=== PATIENT | male | born 1985 | race American Indian/Alaskan Native ===

== ENCOUNTER 2017-12-24 08:57 | Emergency (ER) | payer OTHER ==
[2017-12-24 09:39] VITALS: BP 127/86
[2017-12-24] MEDS ORDERED: XYLOCAINE 1% MPF 5 mL INFILTRATI ONE (11:05)
[2017-12-24] MEDS ORDERED: BOOSTRIX IM ONE (11:05)
[2017-12-24] MEDS ORDERED: MOTRIN PO ONE (11:05)
--- NOTE | 2017-12-24 11:10 | Emergency Department Report ---
- General Chief complaint: Wound/Laceration Stated complaint: EAR PAIN Time Seen by Provider: 12/24/17 10:59 Source: patient Mode of arrival: Ambulatory Limitations: No Limitations - History of Present Illness Initial comments: This is a 32-year-old male nontoxic, well nourished in appearance, no acute signs of distress presents to the ED with c/o of abscess behind earlobe 1 week. Patient also has a secondary complaint of bilateral before meals 1 week. 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 Patient denies any pus, drainage, fever, chills, nausea, vomiting, chest pain shortness of breath. Patient denies any ear pain or drainage. Patient denies decreased hearing. Patient denies any mastoid tenderness. Patient denies any allergies or significant past medical history. MD complaint: abscess/boil -: days(s) (1) Tetanus Up to Date: no Severity: mild Severity scale (0 -10): 8 Quality: aching Consistency: constant Improves with: none Worsens with: none Context: none Associated symptoms: denies other symptoms Treatments Prior to Arrival: none - Related Data Previous Rx's Medication Instructions Recorded Last Taken Type Cyclobenzaprine [Flexeril 10mg] 10 mg PO TID PRN #30 tablet 08/19/14 Unknown Rx HYDROcodone/APAP 5-325 [[place] 1 each PO Q6HR PRN #20 tablet 08/19/14 Unknown Rx 5-325 mg TAB] Ibuprofen [Motrin] 600 mg PO Q8H PRN #40 tablet 08/19/14 Unknown Rx Clotrimazole 1% [Lotrimin 1%] 15 gm TP BID #1 tube 12/24/17 Unknown Rx Ibuprofen [Motrin] 600 mg PO Q8H PRN #30 tablet 12/24/17 Unknown Rx Sulfamethoxazole/Trimethoprim 1 each PO BID #14 tablet 12/24/17 Unknown Rx [Bactrim DS TAB] traMADol [Ultram] 50 mg PO Q6HR PRN #15 tablet 12/24/17 Unknown Rx Allergies Allergy/AdvReac Type Severity Reaction Status Date / Time No Known Allergies Allergy Verified 08/19/14 17:02 Abscess Boil HPI - HPI Chief Complaint: Wound/Laceration Stated Complaint: EAR PAIN Time Seen by Provider: 12/24/17 10:59 Home Medications: Previous Rx's Medication Instructions Recorded Last Taken Type Cyclobenzaprine [Flexeril 10mg] 10 mg PO TID PRN #30 tablet 08/19/14 Unknown Rx HYDROcodone/APAP 5-325 [[place] 1 each PO Q6HR PRN #20 tablet 08/19/14 Unknown Rx 5-325 mg TAB] Ibuprofen [Motrin] 600 mg PO Q8H PRN #40 tablet 08/19/14 Unknown Rx Clotrimazole 1% [Lotrimin 1%] 15 gm TP BID #1 tube 12/24/17 Unknown Rx Ibuprofen [Motrin] 600 mg PO Q8H PRN #30 tablet 12/24/17 Unknown Rx Sulfamethoxazole/Trimethoprim 1 each PO BID #14 tablet 12/24/17 Unknown Rx [Bactrim DS TAB] traMADol [Ultram] 50 mg PO Q6HR PRN #15 tablet 12/24/17 Unknown Rx Allergies/Adverse Reactions: Allergies Allergy/AdvReac Type Severity Reaction Status Date / Time No Known Allergies Allergy Verified 08/19/14 17:02 ED Review of Systems ROS: Stated complaint: EAR PAIN Other details as noted in HPI Constitutional: denies: chills, fever Eyes: denies: eye pain, eye discharge, vision change ENT: denies: ear pain, throat pain Respiratory: denies: cough, shortness of breath, wheezing Cardiovascular: denies: chest pain, palpitations Endocrine: no symptoms reported Gastrointestinal: denies: abdominal pain, nausea, diarrhea Genitourinary: denies: urgency, dysuria Musculoskeletal: denies: back pain, joint swelling, arthralgia Skin: denies: rash, lesions Neurological: denies: headache, weakness, paresthesias Psychiatric: denies: anxiety, depression Hematological/Lymphatic: denies: easy bleeding, easy bruising ED Past Medical Hx - Past Medical History Previous Medical History?: No Additional medical history: heart murmur - Surgical History Past Surgical History?: No - Social History Smoking Status: Never Smoker Substance Use Type: None - Medications Home Medications: Home Medications Medication Instructions Recorded Confirmed Last Taken Type Cyclobenzaprine [Flexeril 10mg] 10 mg PO TID PRN #30 tablet 08/19/14 Unknown Rx HYDROcodone/APAP 5-325 [[place] 1 each PO Q6HR PRN #20 tablet 08/19/14 Unknown Rx 5-325 mg TAB] Ibuprofen [Motrin] 600 mg PO Q8H PRN #40 tablet 08/19/14 Unknown Rx Clotrimazole 1% [Lotrimin 1%] 15 gm TP BID #1 tube 12/24/17 Unknown Rx Ibuprofen [Motrin] 600 mg PO Q8H PRN #30 tablet 12/24/17 Unknown Rx Sulfamethoxazole/Trimethoprim 1 each PO BID #14 tablet 12/24/17 Unknown Rx [Bactrim DS TAB] traMADol [Ultram] 50 mg PO Q6HR PRN #15 tablet 12/24/17 Unknown Rx ED Physical Exam - General Limitations: No Limitations General appearance: alert, in no apparent distress - Head Head exam: Present: atraumatic, normocephalic - Expanded Head Exam Expanded Head exam: Present: other (3 cm induration or fluctuance abscess. No pus or drainage. Tender to touch.) 1 - abscess here - Eye Eye exam: Present: normal appearance Pupils: Present: normal accommodation - ENT ENT exam: Present: normal exam, mucous membranes moist - Expanded ENT Exam Expanded Ear exam: Present: normal external inspection Mouth exam: Present: normal external inspection Teeth exam: Present: normal inspection Throat exam: Positive: normal inspection. Negative: tonsillar erythema, tonsillomegaly, tonsillar exudate, R peritonsillar mass, L peritonsillar mass - Neck Neck exam: Present: normal inspection, full ROM. Absent: tenderness, meningismus, lymphadenopathy - Respiratory Respiratory exam: Present: normal lung sounds bilaterally. Absent: respiratory distress - Cardiovascular Cardiovascular Exam: Present: regular rate, normal rhythm. Absent: systolic murmur, diastolic murmur, rubs, gallop - GI/Abdominal GI/Abdominal exam: Present: soft, normal bowel sounds - Rectal Rectal exam: Present: deferred - Extremities Exam Extremities exam: Present: normal inspection, full ROM, other (bilateral in between toes redness, crusting, and moisture) - Back Exam Back exam: Present: normal inspection, full ROM - Neurological Exam Neurological exam: Present: alert, oriented X3 - Psychiatric Psychiatric exam: Present: normal affect, normal mood - Skin Skin exam: Present: warm, dry, intact, normal color. Absent: rash ED Course Vital Signs 12/24/17 09:32 Temperature 98.5 F Pulse Rate 85 Respiratory 18 Rate Blood Pressure 127/86 O2 Sat by Pulse 99 Oximetry - Reevaluation(s) Reevaluation #1: 12/24/17 11:09 Patient is speaking in full sentences with no signs of distress noted. - I & D Right Ear Type of Procedure: Complex Site: behind right ear lobe Blade Size: 11 I & D Procedure: betadine prep, sterile drapes applied, sterile dressing applied , gauze wick placed Progress: Under sterile field, I used Betadine to cleanse the area. I then used 1% lidocaine plain with 25-gauge 5/8 needle to inject area for anesthetic purposes. Total volume injected 2 mL. I then used an 11 blade to make a 1 cm incision. About 2 mL's of purulent drainage has been noted. I then used a hemostat to break the abscess formation. I then used sterile 0.9% normal saline flush to flush the wound with total volume of 40 mL used. I then put a 1 /4 iodoform packing to the incision. A sterile 4 x 4 with tape has been applied as dressing. Bleeding is under control. Patient tolerated the procedure well with no signs of distress noted. ED Medical Decision Making - Medical Decision Making This is a 32-year-old male that presents with right behind earlobe abscess and athletes feet. Patient is stable and was examined by me. This is incision and drainage and has been performed and patient tolerated well. A sterile dressing has been applied. Patient was educated on proper wound care. Patient is discharged with Bactrim and Ultram and was instructed not to operate any machinery while taking Ultram due to drowsiness. Patient was instructed to return in 2 days for packing removal. Patient was instructed to refer to Follow -up with a primary care doctor in 3-5 days or if symptoms worsen and continue return to emergency room as soon as possible. At time of discharge, the patient does not seem toxic or ill in appearance. No acute signs of distress noted. Patient agrees to discharge treatment plan of care. No further questions noted by the patient. Critical care attestation.: If time is entered above; I have spent that time in minutes in the direct care of this critically ill patient, excluding procedure time. ED Disposition Clinical Impression: Abscess, Encounter for incision and drainage procedure Tinea pedis Qualifiers: Laterality: bilateral Qualified Code(s): B35.3 - Tinea pedis Disposition: TO HOME OR SELFCARE Is pt being admited?: No Does the pt Need Aspirin: No Condition: Stable Instructions: Tinea Pedis (ED), Abscess Incision and Drainage (ED), Abscess (ED ), Tramadol (By mouth), Sulfamethoxazole/Trimethoprim (By mouth) Additional Instructions: Follow-up with a primary care doctor in 3-5 days or if symptoms worsen and continue return to emergency room as soon as possible. Return in 2 days for packing removal and abscess assessment. Do not operate any machinery while taking ultrasound due to possible drowsiness. Prescriptions: Clotrimazole 1% [Lotrimin 1%] 15 gm TP BID #1 tube Ibuprofen [Motrin] 600 mg PO Q8H PRN #30 tablet PRN Reason: Pain Sulfamethoxazole/Trimethoprim [Bactrim DS TAB] 1 each PO BID #14 tablet traMADol [Ultram] 50 mg PO Q6HR PRN #15 tablet PRN Reason: Pain Referrals: PRIMARY CARE, [Primary Care Provider] - 3-5 Days AMARA ARIAS MD [Staff Physician] - 3-5 Days [facility] [place] [Outside] - 3-5 Days [facility] [Outside] - 3-5 Days Forms: Work/School Release Form(ED)
== END 2017-12-24 12:10 | disposition home or self-care (01) ==
LOC: ED 08:57
DX: B35.3 Tinea pedis (principal); H60.01 Abscess of right external ear
CPT/HCPCS: 90471; 90715; 99282

== ENCOUNTER 2018-01-01 09:41 | Emergency (ER) | payer OTHER ==
--- NOTE | 2018-01-01 10:55 | Emergency Department Report ---
- General Chief complaint: Skin Rash Stated complaint: ALLERGIC REACTION Time Seen by Provider: 01/01/18 10:29 Source: patient Mode of arrival: Ambulatory Limitations: No Limitations - History of Present Illness Initial comments: Patient is a 32-year-old Luxembour[place] male who is presenting with a rash. Patient states she was here approximately 45 days ago and was started on Lotrimin for some rash and blistering on the bottoms of his toes. Patient initially thought that he may have had a fungal infection secondary to having a wet socks and shoes. Patient states that now he has a lesion on his penis as well as on his abdomen that are itchy and painful. Patient denies any fevers chills nausea vomiting at this time. - Related Data Previous Rx's Medication Instructions Recorded Last Taken Type Cyclobenzaprine [Flexeril 10mg] 10 mg PO TID PRN #30 tablet 08/19/14 Unknown Rx HYDROcodone/APAP 5-325 [[place] 1 each PO Q6HR PRN #20 tablet 08/19/14 Unknown Rx 5-325 mg TAB] Ibuprofen [Motrin] 600 mg PO Q8H PRN #40 tablet 08/19/14 Unknown Rx Ibuprofen [Motrin] 600 mg PO Q8H PRN #30 tablet 12/24/17 Unknown Rx Sulfamethoxazole/Trimethoprim 1 each PO BID #14 tablet 12/24/17 Unknown Rx [Bactrim DS TAB] traMADol [Ultram] 50 mg PO Q6HR PRN #15 tablet 12/24/17 Unknown Rx Clindamycin [Clindamycin CAP] 150 mg PO Q8HR #20 capsule 01/01/18 Unknown Rx Clotrimazole 1% [Lotrimin 1%] 15 gm TP BID #1 tube 01/01/18 Unknown Rx Griseofulvin Ultramicrosize 500 mg PO BID 28 Days tablet 01/01/18 Unknown Rx [Nisha-Peg] traMADol [Ultram] 50 mg PO Q6HR PRN #14 tablet 01/01/18 Unknown Rx Allergies Allergy/AdvReac Type Severity Reaction Status Date / Time amoxicillin Allergy Vomiting Verified 01/01/18 09:47 Abscess Boil HPI - HPI Chief Complaint: Skin Rash Stated Complaint: ALLERGIC REACTION Time Seen by Provider: 01/01/18 10:29 Home Medications: Previous Rx's Medication Instructions Recorded Last Taken Type Cyclobenzaprine [Flexeril 10mg] 10 mg PO TID PRN #30 tablet 08/19/14 Unknown Rx HYDROcodone/APAP 5-325 [[place] 1 each PO Q6HR PRN #20 tablet 08/19/14 Unknown Rx 5-325 mg TAB] Ibuprofen [Motrin] 600 mg PO Q8H PRN #40 tablet 08/19/14 Unknown Rx Ibuprofen [Motrin] 600 mg PO Q8H PRN #30 tablet 12/24/17 Unknown Rx Sulfamethoxazole/Trimethoprim 1 each PO BID #14 tablet 12/24/17 Unknown Rx [Bactrim DS TAB] traMADol [Ultram] 50 mg PO Q6HR PRN #15 tablet 12/24/17 Unknown Rx Clindamycin [Clindamycin CAP] 150 mg PO Q8HR #20 capsule 01/01/18 Unknown Rx Clotrimazole 1% [Lotrimin 1%] 15 gm TP BID #1 tube 01/01/18 Unknown Rx Griseofulvin Ultramicrosize 500 mg PO BID 28 Days tablet 01/01/18 Unknown Rx [Nisha-Peg] traMADol [Ultram] 50 mg PO Q6HR PRN #14 tablet 01/01/18 Unknown Rx Allergies/Adverse Reactions: Allergies Allergy/AdvReac Type Severity Reaction Status Date / Time amoxicillin Allergy Vomiting Verified 01/01/18 09:47 ED Review of Systems ROS: Stated complaint: ALLERGIC REACTION Other details as noted in HPI Comment: All other systems reviewed and negative ED Past Medical Hx - Past Medical History Additional medical history: heart murmur - Social History Smoking Status: Current Every Day Smoker Substance Use Type: None - Medications Home Medications: Home Medications Medication Instructions Recorded Confirmed Last Taken Type Cyclobenzaprine [Flexeril 10mg] 10 mg PO TID PRN #30 tablet 08/19/14 Unknown Rx HYDROcodone/APAP 5-325 [[place] 1 each PO Q6HR PRN #20 tablet 08/19/14 Unknown Rx 5-325 mg TAB] Ibuprofen [Motrin] 600 mg PO Q8H PRN #40 tablet 08/19/14 Unknown Rx Ibuprofen [Motrin] 600 mg PO Q8H PRN #30 tablet 12/24/17 Unknown Rx Sulfamethoxazole/Trimethoprim 1 each PO BID #14 tablet 12/24/17 Unknown Rx [Bactrim DS TAB] traMADol [Ultram] 50 mg PO Q6HR PRN #15 tablet 12/24/17 Unknown Rx Clindamycin [Clindamycin CAP] 150 mg PO Q8HR #20 capsule 01/01/18 Unknown Rx Clotrimazole 1% [Lotrimin 1%] 15 gm TP BID #1 tube 01/01/18 Unknown Rx Griseofulvin Ultramicrosize 500 mg PO BID 28 Days tablet 01/01/18 Unknown Rx [Nisha-Peg] traMADol [Ultram] 50 mg PO Q6HR PRN #14 tablet 01/01/18 Unknown Rx ED Physical Exam - General Limitations: No Limitations General appearance: alert, in no apparent distress - Head Head exam: Present: atraumatic, normocephalic - Eye Eye exam: Present: normal appearance - ENT ENT exam: Present: mucous membranes moist - Neck Neck exam: Present: normal inspection - Respiratory Respiratory exam: Present: normal lung sounds bilaterally. Absent: respiratory distress - Cardiovascular Cardiovascular Exam: Present: regular rate, normal rhythm. Absent: systolic murmur, diastolic murmur, rubs, gallop - GI/Abdominal GI/Abdominal exam: Present: soft, normal bowel sounds - Rectal Rectal exam: Present: deferred - Extremities Exam Extremities exam: Present: normal inspection - Back Exam Back exam: Present: normal inspection - Neurological Exam Neurological exam: Present: alert, oriented X3 - Psychiatric Psychiatric exam: Present: normal affect, normal mood - Skin Skin exam: Present: warm, dry, normal color, other (on the bottoms of the patient's feet in between his toes as well as on the plantar surface of the toes he has some blistering and some broken skin. There is mildly erythematous. He has some cracking in the web space. Patient also has a oval- sized lesion is approximately 3-4 cm on the abdomen as well as on the shaft of the penis. Both of these areas are erythematous well-demarcated. The lesion on the penis is irritated to the point of having some bleeding.). Absent: rash ED Course Vital Signs 01/01/18 09:47 Temperature 98.3 F Pulse Rate 74 Respiratory 18 Rate Blood Pressure 141/90 O2 Sat by Pulse 98 Oximetry ED Medical Decision Making - Medical Decision Making The patient's lesion on his abdomen does appear somewhat like a herald patch however a fungal lesion cannot be ruled out. The patient has been scratching at his feet quite a bit and may have transferred a fungal infection to the abdomen in the penis. There is some quite a bit of irritation to the shaft of the penis as well as the head of the penis that looks like it could be a secondary infection. Patient referred to dermatology. Patient will have his Lotrimin changed to griseofulvin to treat a more systemic fungal infection. Patient also will be started on clindamycin for possible secondary bacterial infection of the penis. Patient be discharged home Critical care attestation.: If time is entered above; I have spent that time in minutes in the direct care of this critically ill patient, excluding procedure time. ED Disposition Clinical Impression: Dermatitis, Trench foot, Tinea corporis Disposition: DC- TO HOME OR SELFCARE Is pt being admited?: No Does the pt Need Aspirin: No Condition: Stable Instructions: Acute Rash (ED), Jock Itch (ED) Prescriptions: Clindamycin [Clindamycin CAP] 150 mg PO Q8HR #20 capsule Clotrimazole 1% [Lotrimin 1%] 15 gm TP BID #1 tube Griseofulvin Ultramicrosize [Nisha-Peg] 500 mg PO BID 28 Days tablet traMADol [Ultram] 50 mg PO Q6HR PRN #14 tablet PRN Reason: Pain Referrals: PRIMARY CARE,MD [Primary Care Provider] - 3-5 Days
[2018-01-01 11:07] VITALS: BP 138/88
== END 2018-01-01 11:06 | disposition home or self-care (01) ==
LOC: ED 09:41
DX: L30.9 Dermatitis, unspecified (principal); B35.4 Tinea corporis; Z88.1 Allergy status to other antibiotic agents; F17.200 Nicotine dependence, unspecified, uncomplicated
CPT/HCPCS: 99282

== ENCOUNTER 2018-01-14 17:56 | Emergency (ER) | payer OTHER ==
[2018-01-14 18:23] VITALS: BP 134/82
[2018-01-14] MEDS ORDERED: TYLENOL ONE (18:26)
[2018-01-14] MEDS ORDERED: TYLENOL PO ONE (18:27)
[2018-01-14 19:15] LABS: Basophils % (Auto) 0.7 % (0.0-1.8); Eosinophils % (Auto) 0.2 % (0.0-4.3); Hematocrit 41.2 % (35.5-45.6); Hemoglobin 14.1 gm/dl (11.8-15.2); Lymphocytes # (Auto) 0.7 K/mm3 (1.2-5.4); Lymphocytes % (Auto) 17.5 % (13.4-35.0); Mean Corpuscular HGB Conc 34 % (32-34); Mean Corpuscular Hemoglobin 28 pg (28-32); Mean Corpuscular Volume 82 fl (84-94); Monocytes # (Auto) 0.3 K/mm3 (0.0-0.8); Monocytes % (Auto) 8.3 % (0.0-7.3); Platelet Count 113 K/mm3 (140-440); Red Blood Count 5.01 M/mm3 (3.65-5.03); Red Cell Distribution Width 13.5 % (13.2-15.2)
--- NOTE | 2018-01-14 19:17 | XRay Report ---
FINAL REPORT PROCEDURE: XR CHEST ROUTINE 2V TECHNIQUE: PA and lateral chest radiographs were obtained. CPT 87382 HISTORY: Shortness of breath. COMPARISON: No prior studies are available for comparison. FINDINGS: Heart: Normal. Mediastinum/Vessels: Normal. Lungs/Pleural space: Normal. Bony thorax: No acute osseous abnormality. Other: IMPRESSION: No radiographic evidence of acute cardiopulmonary disease.
[2018-01-14 19:26] LABS: BUN/Creatinine Ratio 9; Blood Urea Nitrogen 9 mg/dL (9-20); Calcium 8.7 mg/dL (8.4-10.2); Hemolysis Index 14
--- NOTE | 2018-01-14 19:32 | Emergency Department Report ---
- General Chief Complaint: Upper Respiratory Infection Stated Complaint: FLU LIKE SYS. Time Seen by Provider: 01/14/18 19:20 Source: patient Mode of arrival: Ambulatory Limitations: No Limitations - History of Present Illness Initial Comments: 32-year-old -[place] male complains of flulike symptoms for 5 days. Patient complains of body aches and joint pains as well as diarrhea. Patient has not taken any medication was given Tylenol in triage. Patient has no past medical history currently takes no medications on a daily basis and is allergic to penicillin. MD Complaint: fever, other (diarrhea) -: days(s) (5) Severity scale (0 -10): 10 Consistency: intermittent Improves With: nothing Worsens With: nothing Associated Symptoms: fever, nausea (intermittent), vomiting (times one), diarrhea (none since been in the ER) - Related Data Previous Rx's Medication Instructions Recorded Last Taken Type Cyclobenzaprine [Flexeril 10mg] 10 mg PO TID PRN #30 tablet 08/19/14 Unknown Rx HYDROcodone/APAP 5-325 [[place] 1 each PO Q6HR PRN #20 tablet 08/19/14 Unknown Rx 5-325 mg TAB] Ibuprofen [Motrin] 600 mg PO Q8H PRN #40 tablet 08/19/14 Unknown Rx Ibuprofen [Motrin] 600 mg PO Q8H PRN #30 tablet 12/24/17 Unknown Rx Sulfamethoxazole/Trimethoprim 1 each PO BID #14 tablet 12/24/17 Unknown Rx [Bactrim DS TAB] traMADol [Ultram] 50 mg PO Q6HR PRN #15 tablet 12/24/17 Unknown Rx Clindamycin [Clindamycin CAP] 150 mg PO Q8HR #20 capsule 01/01/18 Unknown Rx Clotrimazole 1% [Lotrimin 1%] 15 gm TP BID #1 tube 01/01/18 Unknown Rx Griseofulvin Ultramicrosize 500 mg PO BID 28 Days tablet 01/01/18 Unknown Rx [Nisha-Peg] traMADol [Ultram] 50 mg PO Q6HR PRN #14 tablet 01/01/18 Unknown Rx Allergies Allergy/AdvReac Type Severity Reaction Status Date / Time amoxicillin Allergy Vomiting Verified 01/01/18 09:47 ED Review of Systems ROS: Stated complaint: FLU LIKE SYS. Other details as noted in HPI Constitutional: fever ENT: denies: ear pain, throat pain Respiratory: denies: cough Gastrointestinal: vomiting (times one), diarrhea Genitourinary: dysuria Musculoskeletal: arthralgia (joint pains) Skin: denies: rash, lesions Neurological: denies: headache, weakness, paresthesias Psychiatric: denies: anxiety, depression Hematological/Lymphatic: denies: easy bleeding, easy bruising ED Past Medical Hx - Past Medical History Previous Medical History?: Yes Additional medical history: heart murmur - Surgical History Past Surgical History?: No - Social History Smoking Status: Current Every Day Smoker - Medications Home Medications: Home Medications Medication Instructions Recorded Confirmed Last Taken Type Cyclobenzaprine [Flexeril 10mg] 10 mg PO TID PRN #30 tablet 08/19/14 Unknown Rx HYDROcodone/APAP 5-325 [[place] 1 each PO Q6HR PRN #20 tablet 08/19/14 Unknown Rx 5-325 mg TAB] Ibuprofen [Motrin] 600 mg PO Q8H PRN #40 tablet 08/19/14 Unknown Rx Ibuprofen [Motrin] 600 mg PO Q8H PRN #30 tablet 12/24/17 Unknown Rx Sulfamethoxazole/Trimethoprim 1 each PO BID #14 tablet 12/24/17 Unknown Rx [Bactrim DS TAB] traMADol [Ultram] 50 mg PO Q6HR PRN #15 tablet 12/24/17 Unknown Rx Clindamycin [Clindamycin CAP] 150 mg PO Q8HR #20 capsule 01/01/18 Unknown Rx Clotrimazole 1% [Lotrimin 1%] 15 gm TP BID #1 tube 01/01/18 Unknown Rx Griseofulvin Ultramicrosize 500 mg PO BID 28 Days tablet 01/01/18 Unknown Rx [Nisha-Peg] traMADol [Ultram] 50 mg PO Q6HR PRN #14 tablet 01/01/18 Unknown Rx ED Physical Exam - General Limitations: No Limitations General appearance: alert, in no apparent distress - Head Head exam: Present: atraumatic, normocephalic - Eye Eye exam: Present: normal appearance - ENT ENT exam: Present: mucous membranes moist - Neck Neck exam: Present: normal inspection - Respiratory Respiratory exam: Present: normal lung sounds bilaterally. Absent: respiratory distress - Cardiovascular Cardiovascular Exam: Present: regular rate, normal rhythm. Absent: systolic murmur, diastolic murmur, rubs, gallop - GI/Abdominal GI/Abdominal exam: Present: soft, normal bowel sounds - Rectal Rectal exam: Present: deferred - Extremities Exam Extremities exam: Present: normal inspection - Back Exam Back exam: Present: normal inspection - Neurological Exam Neurological exam: Present: alert, oriented X3 - Psychiatric Psychiatric exam: Present: normal affect, normal mood - Skin Skin exam: Present: warm, dry, intact, normal color. Absent: rash ED Course Vital Signs 01/14/18 01/14/18 18:18 18:31 Temperature 102.9 F H Pulse Rate 71 Respiratory 18 18 Rate Blood Pressure 134/82 O2 Sat by Pulse 99 Oximetry ED Medical Decision Making - Lab Data Result diagrams: 01/14/18 18:59 - Radiology Data Radiology results: report reviewed, image reviewed FINAL REPORT PROCEDURE: XR CHEST ROUTINE 2V TECHNIQUE: PA and lateral chest radiographs were obtained. CPT 89874 HISTORY: Shortness of breath. COMPARISON: No prior studies are available for comparison. FINDINGS: Heart: Normal. Mediastinum/Vessels: Normal. Lungs/Pleural space: Normal. Bony thorax: No acute osseous abnormality. Other: IMPRESSION: No radiographic evidence of acute cardiopulmonary disease. Transcribed By: SHAHID Dictated By: NNAMDI CASH MD Electronically Authenticated By: NNAMDI CASH MD Signed Date/Time: 01/14/181912 DD/ 12 TD/TT: 01/14/181912 - Medical Decision Making Patient has been evaluated by this provider fast track. Patient has had a CBC CMP and urinalysis and blood cultures as well as a chest x -ray performed. All labs are stable. Discussed with Dr. Katz feels that he is stable to be discharged with follow- up with her primary care provider. Would discharge patient on supportive care. Increase fluid intake and advance diet as tolerated Tylenol and or Motrin for body aches and fever. I have listed primary care provider below. Critical care attestation.: If time is entered above; I have spent that time in minutes in the direct care of this critically ill patient, excluding procedure time. ED Disposition Clinical Impression: Viral syndrome Disposition: DC-01 TO HOME OR SELFCARE Is pt being admited?: No Does the pt Need Aspirin: No Condition: Stable Instructions: Viral Syndrome (ED) Additional Instructions: Please continue with supportive care such as increase fluids and advance her diet as tolerated. Tylenol and/or Motrin for the eighth and fever control. Follow up with her primary care provider if symptoms persist or gets worse. Referrals: PRIMARY CARE, [Primary Care Provider] - 3-5 Days [facility] [Provider Group] - 3-5 Days Forms: Work/School Release Form(ED), Accompanied Note
[2018-01-14] MEDS ORDERED: PEPCID PO ONE (19:40)
[2018-01-14] MEDS ORDERED: BENTYL PO ONE (19:40)
[2018-01-14] MEDS ORDERED: MOTRIN PO ONE (19:40)
[2018-01-14 19:54] LABS: Bilirubin,Urine NEG (Negative); Blood,Urine NEG (Negative); Color,Urine Yellow (Yellow); Mucus,Urine FEW /HPF
[2018-01-14 20:25] LABS: Alanine Aminotransferase 18 units/L (7-56); Albumin 3.5 g/dL (3.9-5); BUN/Creatinine Ratio 8; Blood Urea Nitrogen 8 mg/dL (9-20); Calcium 8.6 mg/dL (8.4-10.2); Hemolysis Index 12
[2018-01-14] MEDS ORDERED: K-DUR PO ONE (21:21)
== END 2018-01-14 21:40 | disposition home or self-care (01) ==
LOC: ED 17:56
DX: B34.9 Viral infection, unspecified (principal); F17.200 Nicotine dependence, unspecified, uncomplicated; Z88.1 Allergy status to other antibiotic agents
CPT/HCPCS: 36415; 71046; 80048; 80053; 81001; 85025; 87040; 93005; 93010; 99284